=== PATIENT | female | born 1990 | race Caucasian/White ===

== ENCOUNTER 2021-09-28 17:18 | Inpatient (IN) | payer OTHER ==
[~2021-09-28] VITALS: Ht 165.1 cm; Wt 61.2 kg
[2021-09-28 17:50] LABS: Hematocrit 42.4 % (33.0-51.0); Hemoglobin 14.9 g/dL (11.5-16.0); Mean Corpuscular HGB 31.5 pg (26.0-34.0); Mean Corpuscular HGB Conc 35.1 g/dL (31.5-36.5); Mean Corpuscular Volume 90 fL (80-100); Mean Platelet Volume 10.8 fL (9.1-12.4); Platelet Count 67 K/mm3 (150-400); RDW Coefficient Variation 12.3 % (11.7-14.2); RDW Standard Deviation 40.8 fL (35.1-46.3); Red Blood Cell Count 4.73 M/mm3 (3.80-5.20); White Blood Cell Count 12.04 K/mm3 (4.00-11.30)
[2021-09-28 18:36] LABS: BAND PERCENT MAN 14 % (0-8); BASOPHILS PERCENT MAN 0 % (0-2); EOSINOPHILS PERCENT MAN 0 % (0-6); LYMPHOCYTES ABSOLUTE MAN 0.36 K/mm3 (0.84-5.20); LYMPHOCYTES PERCENT MAN 3 % (21-46); MONOCYTES ABSOLUTE MAN 1.56 K/mm3 (0.16-1.47); MONOCYTES PERCENT MAN 13 % (4-13); NEUTROPHILS ABSOLUTE MAN 9.87 K/mm3 (1.96-9.15); SEG NEUTROPHILS PERCENT MAN 68 % (41-73); TOTAL CELLS COUNTED 100
[2021-09-28 18:38] LABS: OTHER CELL PERCENT MAN 2 % (0-0)
[2021-09-28 19:58] LABS: Albumin, Blood 2.8 g/dL (3.4-5.0); Albumin/Globulin Ratio 0.6 (0.8-1.8); Bilirubin, Total 0.8 mg/dL (0.1-1.0); Bun/Creatinine Ratio 12.7 (12.0-20.0); Creatinine, Blood 0.63 mg/dL (0.40-1.00); Globulin, Blood 4.7 g/dL (2.2-4.0); Potassium, Blood 2.9 mmol/L (3.5-5.5); Total Protein, Blood 7.5 g/dL (6.4-8.2)
[2021-09-28 20:28] LABS: Source, Urine Clean Catch
[2021-09-28 20:30] LABS: Blood, Urine 5+ (Neg); Glucose Qualitative, Urine Neg (Neg); Ketones, Urine 2+ (Neg); Leukocyte Esterase, Urine 1+ (Neg); Nitrite, Urine Neg (Neg); Protein, Urine 3+ (Neg); Urobilinogen, Urine 3+ (Normal); pH, Urine 6.5 (5.0-8.0)
[2021-09-28 20:50] LABS: Bilirubin, Urine 1+ (Neg)
[2021-09-28 20:51] LABS: Appearance, Urine Cloudy (Clear); Color, Urine Amber (P-Yellow)
[2021-09-28 20:54] LABS: Bacteria Many /hpf; Squamous Epithelial Cells Mod /hpf (Few)
--- NOTE | 2021-09-28 23:15 | NUR ---
ASSUMED CARE OF PT AT 2317. BAG OF PERSONAL BELONGINGS AT BEDSIDE.
--- NOTE | 2021-09-29 01:33 | NUR ---
PT W/ C/O NAUSEA, TREMORS AND ANXIETY. CIWA SCORE 14. GIVEN 2MG IV ATIVAN AND 25MG LIBRIUM.
[2021-09-29] MEDS ORDERED: MIRENA1 EAC1 UD (02:24)
--- NOTE | 2021-09-29 03:06 | NUR ---
UPON CHECKING ON PT, SKIN NOTED TO BE HOT AND FLUSHED. TEMPORAL THERMOMETER READING OF 104.9 F. ORAL TEMP OF 103.8 F. APAP ADMINISTERED, BLANKETS REMOVED AND COOLING BLANKET APPLIED WITH FAN. VITAL SIGNS OBTAINED 128/80, TACHYCARDIC AT 130, 02 98%. BED LINENS SOILED WITH URINE BUT STATES HER CLOTHES ARE NOT WET. NO CONFUSION, OTHERWISE. ORIENTING NURSE AND CHARGE NURSE AIDED IN PROVIDING CARE AND APPLICATION OF COOLING BLANKET.
--- NOTE | 2021-09-29 04:20 | NUR ---
CIWA SCORE DOWN TO 3 FROM 14. PT SLEEPING HEAVILY, NOW. TEMPERATURE TRENDING DOWN.
[2021-09-29 04:28] LABS: Hematocrit 32.8 % (33.0-51.0); Hemoglobin 11.5 g/dL (11.5-16.0); Mean Corpuscular HGB Conc 35.1 g/dL (31.5-36.5); Mean Corpuscular Volume 91 fL (80-100); Mean Platelet Volume 11.4 fL (9.1-12.4); Platelet Count 55 K/mm3 (150-400); RDW Coefficient Variation 12.6 % (11.7-14.2); RDW Standard Deviation 42.2 fL (35.1-46.3); Red Blood Cell Count 3.59 M/mm3 (3.80-5.20)
--- NOTE | 2021-09-29 04:59 | NUR ---
ORAL TEMP DOWN TO 98.9-F. ICE PACKS AND COOLING PAD REMOVED AND THIN BLANKET PLACED OVER PT. WILL CONTINUE TO MONITOR.
[2021-09-29 05:03] LABS: Albumin, Blood 1.9 g/dL (3.4-5.0); Albumin/Globulin Ratio 0.6 (0.8-1.8); Bilirubin, Total 0.5 mg/dL (0.1-1.0); Bun/Creatinine Ratio 16.9 (12.0-20.0); Calcium, Blood 7.6 mg/dL (8.5-10.1); Creatinine, Blood 0.53 mg/dL (0.40-1.00); Globulin, Blood 3.3 g/dL (2.2-4.0); Potassium, Blood 2.8 mmol/L (3.5-5.5)
[2021-09-29 05:05] LABS: Total Protein, Blood 5.2 g/dL (6.4-8.2)
--- NOTE | 2021-09-29 05:10 | NUR ---
A&Ox4 WHEN AROUSED, BUT VERY SLEEPY. CIWA SCORE 14 W/ VISIBLE TREMORS AND NAUSEA; ADMINISTERED LIBRIUM 25MG PO, ATIVAN 2MG AND ZOFRAN 4MG IV. LR RUNNING L AC 125mL/hr; R AC SALINE LOCKED. AT 0300 PT NOTED TO BE RUNNING FEVER OF 104.9 TEMPORAL AND 103.8 ORAL. COOLING PACKS AND ICE PACKS APPLIED AND APAP ADMINISTRED. AT 0500 TEMP RETURNED TO 98.9 ORAL AND COOLING MECHANISMS REMOVED. APPEARS TO BE SLEEPING COMFORTABLY. WILL CONTINUE TO MONITOR.
[2021-09-29 05:47] LABS: BAND PERCENT MAN 8 % (0-8); BASOPHILS PERCENT MAN 0 % (0-2); EOSINOPHILS PERCENT MAN 0 % (0-6); LYMPHOCYTES PERCENT MAN 8 % (21-46); MONOCYTES PERCENT MAN 12 % (4-13); SEG NEUTROPHILS PERCENT MAN 72 % (41-73); TOTAL CELLS COUNTED 100
--- NOTE | 2021-09-29 05:58 | NUR ---
PT K+ LEVEL 2.9 UP FROM 2.8 IN ED. CALL TO ON-CALL HOSPITALIST. AWAITING RETURN CALL.
--- NOTE | 2021-09-29 06:05 | NUR ---
CALL FROM DR STORM. T.O. FOR KCL 40MEQ IV NOW. ORDER INTO COMPUTER. CONFIRMED WITH CHARGE AND ORIENTING RN.
[2021-09-29 07:53] LABS: Magnesium, Blood 1.3 mg/dL (1.6-2.4); Phosphorus, Blood 1.2 mg/dL (2.5-4.9)
[2021-09-29 16:29] LABS: Magnesium, Blood 1.9 mg/dL (1.6-2.4); Phosphorus, Blood 2.6 mg/dL (2.5-4.9); Potassium, Blood 3.5 mmol/L (3.5-5.5)
--- NOTE | 2021-09-29 18:22 | NUR ---
TRANSFER PCU PATIENT A&OX4 WHEN AROUSED, VERY SLEEPY T/O SHIFT. C/O NUMBNESS IN HANDS, NAUSEA, CHILLS. NOTED VISIBLE TREMORS AND SWEATING T/O SHIFT. MEDICATED MULTIPLE TIMES WITH ATIVAN AND LIBRIUM. MID MORNING FEVER 103. MEDICATED WITH TYLENOL AND ICE PACKS PLACED. MEDICATED X1 FOR NAUSEA. NO APPETITE, ONLY TOLERATING WATER. INCONT OF URINE AND EPISODES OF DIARRHEA. RECEIVED LR, IV K+, MAGNISIUM, PHOS. REPORT CALLED TO [employer]IST[employer] COACH AND PATIENT TRANFERRED TO PCU. ALL BELONGINGS TAKEN WITH.
[2021-09-30 04:02] LABS: Hematocrit 33.3 % (33.0-51.0); Hemoglobin 11.7 g/dL (11.5-16.0); Mean Corpuscular HGB 32.1 pg (26.0-34.0); Mean Corpuscular HGB Conc 35.1 g/dL (31.5-36.5); Mean Corpuscular Volume 91 fL (80-100); Mean Platelet Volume 11.8 fL (9.1-12.4); Platelet Count 62 K/mm3 (150-400); RDW Coefficient Variation 12.4 % (11.7-14.2); RDW Standard Deviation 41.7 fL (35.1-46.3); Red Blood Cell Count 3.65 M/mm3 (3.80-5.20); White Blood Cell Count 8.83 K/mm3 (4.00-11.30)
[2021-09-30 04:21] LABS: Albumin, Blood 1.8 g/dL (3.4-5.0); Anion Gap 7 mmol/L (6-16); Blood Urea Nitrogen 7 mg/dL (8-24); Bun/Creatinine Ratio 15.5 (12.0-20.0); CO2, Blood 24 mmol/L (21-32); Calcium, Blood 7.8 mg/dL (8.5-10.1); Chloride, Blood 106 mmol/L (98-108); Creatinine, Blood 0.45 mg/dL (0.40-1.00); Glomerular Filtration Rate 132 (60-); Glucose, Blood 90 mg/dL (70-99); Magnesium, Blood 1.8 mg/dL (1.6-2.4); Phosphorus, Blood 2.6 mg/dL (2.5-4.9); Sodium, Blood 137 mmol/L (136-145)
--- NOTE | 2021-09-30 05:35 | NUR ---
SHIFT SUMMARY PATIENT ALERT AND ORIENTED X4, ABLE TO MAKE NEEDS KNOWN TO STAFF. CIWA 6-8 DURING THE NIGHT, MEDICATED PER EMAR. VSS, TELE READING SINUS-SINUS TACH, HR 90-110s. DENIES CHEST PAIN. REMAINS ON RA T/O NIGHT WITH NO COMPLAINTS OF SOB. 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 INCONTINENT OF BOWEL AND BLADDER AT THIS TIME, ATTENDS IN PLACE. NO OTHER ACUTE CHANGES THIS SHIFT, WILL REPORT TO DAY SHIFT RN.
--- NOTE | 2021-09-30 11:02 | NUR ---
UPDATE PT UP OUT OF BED STATES SHE NEEDS TO GO TO THE BATHROOM. INCONTINENT LIQUID STOOL NOTICED. PT ASSISTED TO BSC. LARGE LIQUID YELLOW BM. PT PROVIDED SPONGE BATH AND LINEN CHANGED. CIWA OF 8. PT MEDICATED WITH LIBRIUM PER EMAR. HR UP TO 140 WITH ACTIVITY, BUT BACK DOWN TO 110'S WHEN BACK TO BED. WILL CONTINUE TO MONITOR CLOSELY.
--- NOTE | 2021-09-30 17:41 | NUR ---
SHIFT SUMMARY PT REMAINS ALERT AND ORIENTED X3. PT CONFUSED AT TIMES. BP STABLE. HR HAS BEEN SINUS TACH. O2 SATS REMAIN ABOVE 90% ON RA. PT DENIES ANY PAIN. SEE CIWA. PT MEDICATED NEEDED FOR ETOH WD. PT HAD MULTIPLE LIQUID BM THIS SHIFT. PT ABLE TO TOLERATE PO INTAKE TODAY. WILL CONTINUE TO MONITOR AND REPORT TO ONCOMING RN. BED ALARM ON FOR SAFETY
--- NOTE | 2021-10-01 01:00 | NUR ---
UPDATE PATIENT ANXIOUS IN THE ROOM, BED ALARM SET OFF, RN INTO ROOM, THIS RN IN ROOM SHORTLY AFTER. PATIENT STANDING AT BEDSIDE ATTEMPTING TO GET BELONGINGS AND STATES "I NEED OUT OF HERE, I NEED FRESH AIR, I JUST CAN'T DO THIS". PATIENT REDIRECTED TO SITTING POSITION IN BED. SEE CIWA ASSESSMENTS. PATIENT EXPRESSING THAT SHE WANTS TO LEAVE AMA. RISKS AND BENEFITS EXPLAINED TO PATIENT. CALL PLACED TO HOSPITALIST, ORDER RECIEVED FOR IV PHENOBARBITAL, SEE UPDATED ORDERS/MAR.
--- NOTE | 2021-10-01 01:57 | NUR ---
UPDATE DR. STORM AT BEDSIDE SPEAKING WITH PATIENT. PATIENT AGREEING WITH TREATMENT PLAN AND WILL STAY THE NIGHT IN THE HOSPITAL AND REEVALUATE IN THE MORNING. NEW ORDERS FOR ZYPREXA TO ASSIST WITH EASING ANXIETY AND UPDATED ATIVAN ORDER FOR WITHDRAWAL SYMPTOMS.
--- NOTE | 2021-10-01 06:31 | NUR ---
SHIFT SUMMARY PATIENT ALERT, ORIEMTED x4, ANXIOUS, BUT FORGETFUL AT TIMES. VSS. PATIENT REMAINS ON RA T/O NIGHT WITH O2 SAT >90%. DENIES CHEST PAIN/SOB. BED ALARM IN PLACE FOR SAFETY D/T PATIENT NOT USING CALL LIGHT. PATIENT AMBULATING INTO BATHROOM THIS SHIFT, NO INCONTINENT EPISODES. MEDICATED PER EMAR PER FOR WITHDRAWAL SYMPTOMS. NO OTHER CHANGES SINCE PREVIOUS NOTE, WILL REPORT TO DAY SHIFT RN.
[2021-10-01 09:17] LABS: Albumin, Blood 1.9 g/dL (3.4-5.0); Anion Gap 7 mmol/L (6-16); Blood Urea Nitrogen 5 mg/dL (8-24); Bun/Creatinine Ratio 10.6 (12.0-20.0); CO2, Blood 24 mmol/L (21-32); Calcium, Blood 7.8 mg/dL (8.5-10.1); Chloride, Blood 107 mmol/L (98-108); Creatinine, Blood 0.47 mg/dL (0.40-1.00); Glomerular Filtration Rate 130 (60-); Glucose, Blood 103 mg/dL (70-99); Magnesium, Blood 1.8 mg/dL (1.6-2.4); Phosphorus, Blood 1.6 mg/dL (2.5-4.9); Potassium, Blood 3.6 mmol/L (3.5-5.5); Sodium, Blood 138 mmol/L (136-145)
--- NOTE | 2021-10-01 17:16 | NUR ---
SHIFT SUMMARY PT REMAINS ALERT AND ORIENTED TO SELF, PLACE, FOLLOWING DIRECTIONS. PT CONFUSED OF DATE AT TIMES, BUT EASILY REORIENTED. VS STABLE. HR NSR TO ST. PT DENIES ANY PAIN. MONITORING ETOH WD WITH CIWA AND TREATING PER ORDERS. PT ABLE TO AMBULATE TO BATHROOM NEEDED WIHT SBA. BED ALARM ON FOR SAFETY. WILL CONTINUE TO MONITOR AND REPORT TO ONCOMING RN
--- NOTE | 2021-10-01 21:49 | NUR ---
ASSESSMENT/AMA PATIENT ALERT, ORIENTED x4 ABLE TO MAKE NEEDS KNOWN TO STAFF, VSS, PATIENT ON RA WITH O2 SAT >90%. DENIES CHEST PAIN/SOB. STANDBY ASSIST IN THE ROOM. MEDICATED WITH ATIVAN/LIBRIUM FOR WITHDRAWAL SYMPTOMS PER EMAR. PATIENT OUT INTO HALLWAY, AT NURSES STATION STATING THAT SHE WANTS TO LEAVE AMA. CALL PLACED TO HOSPITALIST REGARDING PATIENT'S WISHES. RISKS AND BENEFITS EXPLAINED TO PATIENT REGARDING ALCOHOL WITHDRAWAL AND CURRENT INFECTION. PATIENT SIGNED AMA PAPERS. AMBULATED INDEPENDENTLY TO ER ENTRANCE WITH ALL BELONGINGS.
== END 2021-10-01 21:38 | disposition left against medical advice (07) | DRG 871 ==
LOC: ER 17:18 → MEDS 22:01 → PCU 22:01 → MEDS 23:10 → PCU 09-29 17:57
PROVIDERS: Family Medicine; Internal Medicine; Physician Assistant; Student in an Organized Health Care Education/Training Program; ADMIT Internal Medicine
DX: A41.51 Sepsis due to Escherichia coli [E. coli] (principal); J18.9 Pneumonia, unspecified organism; J69.0 Pneumonitis due to inhalation of food and vomit; E87.0 Hyperosmolality and hypernatremia; F10.139 Alcohol abuse with withdrawal, unspecified; N39.0 Urinary tract infection, site not specified; E87.6 Hypokalemia; E83.42 Hypomagnesemia; E83.39 Other disorders of phosphorus metabolism; F41.9 Anxiety disorder, unspecified; F32.A Depression, unspecified; D69.59 Other secondary thrombocytopenia; F90.9 Attention-deficit hyperactivity disorder, unspecified type
CPT/HCPCS: 36415; 71045; 80053; 80069; 81001; 82330; 83605; 83690; 83735; 84100; 84132; 85025; 85027; 87040; 87077; 87086; 87186; 93005; 93010; 96361; 96365; 96366; 96375; 99285-25; A9270; C9113; J0696; J1885; J2060; J2405; J2765; J3475; J3480; J7030; J7050; J7060; J7120

== ENCOUNTER → 2022-01-22 | Outpatient (CLI) | payer OTHER ==
[~2022-01-22] MED LIST: MIRENA1 EAC1 UD
== END | disposition home or self-care (01) ==
LOC: LAB SHORT 15:14
DX: N39.0 Urinary tract infection, site not specified (principal)
CPT/HCPCS: 87077; 87086; 87186